=== PATIENT | male | born 1985 | race Caucasian/White ===

== ENCOUNTER 2017-05-02 08:22 | Emergency (ER) | payer OTHER ==
[~2017-05-02] VITALS: Ht 190.5 cm; Wt 146.0 kg
[~2017-05-02 08:22] MED LIST: CEPH500C3 PO; Z.0.NO CURRENT MEDS
[2017-05-02 08:25] VITALS: BP 185/105; PULSE 100; RESP 16; TEMP 98.1; O2SAT 98
[2017-05-02] MEDS ORDERED: CYCL10TA PO (08:41)
--- NOTE | 2017-05-02 09:11 | PD ---
HPI . Back pain Chief Complaint: Back/ Neck Pain or Injury Time Seen by Provider: 08:45 Travel History International Travel<30 days: No Contact w/Intl Traveler<30days: No Traveled to known affect area: No History of Present Illness HPI This patient presents with atraumatic left lower thoracic back pain which is been present for a week or more. Pain is exacerbated by movement and relieved by being still. Pain is rated 8/10. He reports that he was seen at urgent care and was given a steroid injection and a prescription for Flexeril. He reports no real relief with this treatment. He states that he was scheduled for an MRI was unable to tolerate the MRI secondary to claustrophobia. He now has a subsequent open MRI scheduled, I believe, for tomorrow. He states that he probably will have the results of the MRI until next week. He presents to us today requesting a CT stating that he cannot wait that long for the results of the MRI. PFSH Past Medical History Medical History: Denies Significant Hx Tetanus Vaccination: < 5 Years Influenza Vaccination: No Past Surgical History Tonsillectomy: Yes (AND ADNOIDS) Tympanostomy Tube: Yes (BILAT EARS A CHILD) Social History Alcohol Use: Yes (2-3 PER WEEK MIX DRINKS, BEER) Tobacco Use: Yes (1 PPD) Substance Use: No Allergies-Medications (Allergen,Severity, Reaction): Coded Allergies: No Known Allergies (Verified Adverse Reaction, Unknown, 05/02/17) Reported Meds & Prescriptions Reported Meds & Active Scripts Active Reported Flexeril (Cyclobenzaprine HCl) 10 Mg Tab 10 Mg PO TID PRN Review of Systems Except as stated in HPI: all other systems reviewed are Neg General / Constitutional: No: Fever, Chills Neurologic: No: Weakness, Focal Abnormalities, Paresthesia, Incontinence Physical Exam Narrative GENERAL: Awake and alert and in no acute distress. SKIN: Warm and dry. HEAD: Normocephalic/atraumatic. EYES: Pupils are equal. Extraocular movements are intact. NECK: Normal range of motion. RESPIRATORY: Nonlabored respirations. MUSCULOSKELETAL: His back pain is in the lower thoracic spine at about T10. I am unable to elicit any tenderness to percussion of the thoracic or lumbar spine. NEUROLOGICAL: Nonfocal. PSYCHIATRIC: Appropriate mood and affect. Data Data Last Documented VS Vital Signs Date Time Temp Pulse Resp B/P (MAP) Pulse Ox O2 Delivery O2 Flow Rate FiO2 05/02/17 08:39 16 05/02/17 08:25 98.1 100 185/105 (131) [address] Thor Spine W/O Contrast (05/02/17 08:57) MDM Medical Decision Making Medical Screen Exam Complete: Yes Emergency Medical Condition: Yes Differential Diagnosis Differential diagnosis includes but is not limited to muscular low back pain, DDD, spinal stenosis, epidural abscess, sciatica, kidney infection or stone. Narrative Course This patient presents with thoracic back pain. He is requesting a CT of his back. Last Impressions Thoracic Spine CT 05/02/17 0857 Signed Impressions: Service Date/Time: Tuesday, May 02, 2017 09:09 - CONCLUSION: 1. Mild degenerative changes in the mid and lower thoracic spine. 2. No acute compression fracture. 3. No significant neural foraminal stenosis or spinal stenosis identified. Jj Shin MD I will add a NSAIA to his treatment regimen. 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
--- NOTE | 2017-05-02 09:39 | RADRPT ---
EXAM DATE/TIME: 05/02/2017 09:09 [facility] COMPARISON: No previous studies available for comparison. INDICATIONS : Mid back pain. RADIATION DOSE: 56.72 CTDIvol (mGy) ; Patient body habitus MEDICAL HISTORY : None SURGICAL HISTORY : None. ENCOUNTER: Initial ACUITY: 4 - 6 days PAIN SCALE: 7/10 LOCATION: Thoracic spine. TECHNIQUE: Volumetric scanning of the thoracic spine was performed. Multiplanar reconstructions in the sagittal , coronal and oblique axial planes were performed. Using automated exposure control and adjustment o f the mA and/or kV according to patient size, radiation dose was kept as low as reasonably achievable to obtain optimal diagnostic quality images. DICOM format image data is available electronically f or review and comparison. FINDINGS: Sagittal and coronal reformats are provided. The alignment of the thoracic vertebral bodies is adequa te. There are degenerated disc with mild anterior endplate osteophyte formation at T6/T7, T7/T8, T8/T 9, T9/T10, T10/T11 and T. 11/T12. No destructive lesion is seen. Axial imaging through the disc spaces is provided. There is no definite neural foraminal stenosis or spinal stenosis seen. Again there are scattered, mild degenerative changes within the spine noted. The paraspinous soft tissues are unremarkable. CONCLUSION: 1. Mild degenerative changes in the mid and lower thoracic spine. 2. No acute compression fracture. 3. No significant neural foraminal stenosis or spinal stenosis identified. Jj Shin MD on May 02, 2017 at 9:31 Board Certified Radiologist. This report was verified electronically.
[2017-05-02] MEDS ORDERED: NABU1TAB37 PO (09:49)
== END 2017-05-02 10:05 | disposition home or self-care (01) ==
LOC: PHED 08:22
DX: M47.814 Spondylosis without myelopathy or radiculopathy, thoracic region (principal); F17.200 Nicotine dependence, unspecified, uncomplicated
CPT/HCPCS: 72128; 99283